=== PATIENT | male | born 1975 | race Caucasian/White ===

== ENCOUNTER 2025-01-14 16:28 | Emergency (ER) | payer OTHER ==
[~2025-01-14] VITALS: Ht 172.7 cm; Wt 105.3 kg
[2025-01-14] MEDS ORDERED: Methylnaltrexone Bromide 12 MG/0.6 ML VIAL SUB-Q ONE (19:45)
[2025-01-14] MEDS ORDERED: SOD PHOSPHATE/SOD BIPHOSPHATE 132 ML BTL PR ONE (20:00)
[2025-01-14] MEDS ORDERED: COLACE100 MG PO (20:49)
[2025-01-14 20:55] VITALS: BP 140/83
== END 2025-01-14 20:55 | disposition home or self-care (01) ==
LOC: ED 16:28
DX: K59.03 Drug induced constipation (principal); T40.2X5A Adverse effect of other opioids, initial encounter; J45.909 Unspecified asthma, uncomplicated; Z88.0 Allergy status to penicillin
CPT/HCPCS: 99283; J2212

== ENCOUNTER 2025-04-13 09:12 | Emergency (ER) | payer OTHER ==
[~2025-04-13] VITALS: Ht 172.7 cm; Wt 105.3 kg
[~2025-04-13 09:12] MED LIST: COLACE100 MG PO
[2025-04-13] MEDS ORDERED: CLEARLAX119 GM (09:29)
[2025-04-13] MEDS ORDERED: TRAZODONE HCL100 MG PO (09:29)
[2025-04-13] MEDS ORDERED: PRAZOSIN HCL1 MG PO (09:29)
[2025-04-13] MEDS ORDERED: PRAZOSIN HCL2 MG PO (09:29)
[2025-04-13] MEDS ORDERED: CITALOPRAM HBR20 MG PO (09:29)
[2025-04-13] MEDS ORDERED: GABAPENTIN100 MG PO (09:55)
[2025-04-13 10:19] VITALS: BP 160/102
== END 2025-04-13 10:20 | disposition home or self-care (01) ==
LOC: ED 09:12
DX: M79.2 Neuralgia and neuritis, unspecified (principal); J45.909 Unspecified asthma, uncomplicated; Z88.0 Allergy status to penicillin; Z79.899 Other long term (current) drug therapy
CPT/HCPCS: 73030; 99283

== ENCOUNTER 2025-06-02 18:27 | Emergency (ER) | payer OTHER ==
[~2025-06-02] VITALS: Ht 172.7 cm; Wt 109.7 kg
[~2025-06-02 18:27] MED LIST changes: +CITALOPRAM HBR20 MG PO; +CLEARLAX119 GM; +GABAPENTIN100 MG PO; +PRAZOSIN HCL1 MG PO; +PRAZOSIN HCL2 MG PO; +TRAZODONE HCL100 MG PO
[2025-06-02] MEDS ORDERED: HYDROCODONE/ACETA 5/325 TAB PO ONE (19:45)
[2025-06-02] MEDS ORDERED: MORPHINE SULFATE 10 MG/ML VIAL IM ONE (20:30)
[2025-06-02] MEDS ORDERED: KETOROLAC TROMETHAMINE 60 MG/2 ML VIAL IM ONE (20:30)
[2025-06-02] MEDS ORDERED: TRIAMCINOLONE ACET 40 MG/ML VIAL 1 ML IAARTIC ONE (21:15)
[2025-06-02] MEDS ORDERED: HYDROCODON-ACE1 EA10 PO (21:26)
[2025-06-02] MEDS ORDERED: HYDROCODONE BIT/ACETAMINOPHEN 5/325 MG 1 TAB HOME.PACK PO ONE (21:30)
[2025-06-02 21:31] VITALS: BP 127/90
== END 2025-06-02 21:43 | disposition home or self-care (01) ==
LOC: ED 18:27
DX: M75.31 Calcific tendinitis of right shoulder (principal); M12.811 Other specific arthropathies, not elsewhere classified, right shoulder; I10 Essential (primary) hypertension; J45.909 Unspecified asthma, uncomplicated; Z88.0 Allergy status to penicillin; Z79.899 Other long term (current) drug therapy
CPT/HCPCS: 73200; 96372; 99283-25; A9270; J1885; J2270; J3301

== ENCOUNTER 2025-06-18 14:04 | Emergency (ER) | payer OTHER ==
[~2025-06-18] VITALS: Ht 172.7 cm; Wt 108.7 kg
[~2025-06-18 14:04] MED LIST changes: +HYDROCODON-ACE1 EA10 PO
--- OUTSIDE RECORDS SUMMARY | 2025-06-18 14:11 | XMS ---
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 EStephen VISIT COUNT (12 MO.) [address] [place] [address] TOTAL 4 NOTE: Visits indicate total known visits. ED/UCC VISIT TRACKING (12 MO.) 06/18/2025 14:04 [facility] [place] TYPE: Emergency COMPLAINT: - RT SHOULDER INJURY 06/02/2025 18:28 [facility] [place] TYPE: Emergency COMPLAINT: - SHOULDER PAIN DIAGNOSES: - Allergy status to penicillin - Calcific tendinitis of right shoulder - Essential (primary) hypertension - Other middle or intermediate school principal (current) drug therapy - Other specific arthropathies, not elsewhere classified, right shoulder - Pain in right shoulder - Unspecified asthma, uncomplicated 04/13/2025 09:13 [facility] [place] TYPE: Emergency COMPLAINT: - RT SHOULDER PAIN DIAGNOSES: - Allergy status to penicillin - Neuralgia and neuritis, unspecified - Other middle or intermediate school principal (current) drug therapy - Pain in right arm - Unspecified asthma, uncomplicated 01/14/2025 16:29 [facility] [place] TYPE: Emergency COMPLAINT: - CONSTIPATION DIAGNOSES: - Adverse effect of other opioids, initial encounter - Allergy status to penicillin - Constipation, unspecified - Drug induced constipation - Unspecified asthma, uncomplicated INPATIENT VISIT TRACKING (12 MO.) No inpatient visits to display in this time frame [email or web address]
[2025-06-18] MEDS ORDERED: CYCLOBENZAPRINE10 MG PO (15:25)
[2025-06-18] MEDS ORDERED: HYDROCODON-ACE1 EA10 PO (16:21)
[2025-06-18 16:34] VITALS: BP 153/95
== END 2025-06-18 16:35 | disposition home or self-care (01) ==
LOC: ED 14:04
DX: M25.511 Pain in right shoulder (principal); I10 Essential (primary) hypertension; Z88.0 Allergy status to penicillin; Z79.899 Other long term (current) drug therapy
CPT/HCPCS: 99283